=== PATIENT | male | born 1970 | race Caucasian/White ===

== ENCOUNTER 2018-07-13 20:16 | Emergency (ER) | payer MEDICAID ==
[~2018-07-13] VITALS: Ht 160 cm; Wt 95.3 kg
[2018-07-13 20:20] VITALS: BP_SYST 190
--- NOTE | 2018-07-13 20:30 | NUR ---
Placed in room 5 . Placed on personnel monitor, blood pressure machine and pulse oximeter. To gown for exam. Side rails up. Report given to SHAZIA MARCELO.
--- NOTE | 2018-07-13 20:45 | NUR ---
2044 - Assumed care of pt. Pt states that he was watching a movie at home, started laughing, then had a coughing fit, and had syncopal episode. pt states he has hx of HTN, but did not take medication today. Pt has hematoma and abrasion to left cheek, and abrasion and swelling to right lower lip. pt is A&OX4, no distress. resp even and unlabored. BP elevated at 189/106, denies cp, sob, lightheadedness, dizziness.
--- NOTE | 2018-07-13 20:55 | NUR ---
2054 - Ice pack given for left cheek
--- NOTE | 2018-07-13 21:01 | NUR ---
2101 - ER at bedside examining patient.
--- NOTE | 2018-07-13 21:11 | NUR ---
PT MOVED TO ER ROOM 8,REPORT GIVEN TO JACLYN MARCELO.
[2018-07-13] MEDS ORDERED: NACL 0.9% 1,000 ML IV ONE (21:15)
--- NOTE | 2018-07-13 21:22 | NUR ---
1L NS administered. Pt tolerated well. No adverse reactions noted.
--- NOTE | 2018-07-13 21:45 | NUR ---
Pt taken to radiology in stable condition
--- NOTE | 2018-07-13 22:09 | NUR ---
Lab at bedside for blood draw. Ice pack provided per pt request. BP 182/117, Pain 7/10 and requests pain medication. Dr[address] Roberts notified. Orders to be received.
[2018-07-13 22:28] LABS: HEMATOCRIT 40.6 % (36-54); HEMOGLOBIN 13.5 g/dL (14.0-18.0); MEAN CORPUSCULAR HEMOGLOBIN 28 pg (27-31); MEAN CORPUSCULAR HGB CONC 33 % (32-36); MEAN CORPUSCULAR VOLUME 84 fL (79.0-98.0); RED BLOOD CELL COUNT(AUTO) 4.84 MIL/uL (4.2-6.2); RED CELL DISTRIBUTION WIDTH 14.3 % (9.0-15.0); WHITE BLOOD COUNT (AUTO) 8.4 K/uL (4.8-10.8)
[2018-07-13 22:29] LABS: BASOPHILS # (AUTO) 0.1 K/uL (0.0-0.2); BASOPHILS % (AUTO) 0.6 % (0.0-2.0); EOSINOPHILS # (AUTO) 0.4 K/uL (0.0-0.4); EOSINOPHILS % (AUTO) 5.2 % (0.0-4.0); LYMPHOCYTES # (AUTO) 2.3 K/uL (1.0-5.5); LYMPHOCYTES % (AUTO) 27.8 % (20.5-51.5); MONOCYTES # (AUTO) 0.8 K/uL (0.0-1.0); MONOCYTES % (AUTO) 9.3 % (1.7-9.3); NEUTROPHILS # (AUTO) 4.8 K/uL (1.8-7.7); NEUTROPHILS % (AUTO) 57.1 % (40.0-70.0); PLATELET COUNT (AUTO) 234 K/uL (130-430)
[2018-07-13] MEDS ORDERED: hydrALAZINE HCL 20 MG/ML VIAL IVP ONE (22:30)
[2018-07-13] MEDS ORDERED: MORPHINE 4 MG/ML INJ. SYRINGE IVP ONE (22:30)
--- NOTE | 2018-07-13 22:30 | NUR ---
Pt refused morphine and requested non-narcotic pain medication. Dr. Roberts notified. Orders to be received.
[2018-07-13 22:31] LABS: CALCIUM 8.3 mg/dL (8.4-11.0); CREATININE 1.03 mg/dL (0.55-1.30); POTASSIUM 3.3 mmol/L (3.5-5.1)
[2018-07-13 22:34] LABS: PROTHROMBIN TIME 10.2 SECS (9.5-12.5)
[2018-07-13 22:36] LABS: TOTAL BILIRUBIN 0.3 mg/dL (0.0-1.0)
[2018-07-13] MEDS ORDERED: POTASSIUM CHLORIDE 20 MEQ TAB.PRT.SR PO ONE (22:45)
[2018-07-13] MEDS ORDERED: IBUPROFEN 800 MG TABLET PO ONE (22:45)
--- NOTE | 2018-07-13 22:49 | NUR ---
Ibuprofen 800mg PO administered. Pt tolerated well. No adverse reactions noted.
[2018-07-13 22:58] LABS: BILIRUBIN,URINE NEGATIVE (NEGATIVE); BLOOD, URINE NEGATIVE (NEGATIVE); CLARITY/URINE CLEAR (CLEAR); COLOR,URINE YELLOW (YELLOW); GLUCOSE,URINE NEGATIVE (NEGATIVE); KETONES,URINE NEGATIVE (NEGATIVE); LEUKOCYTE ESTERASE ,URINE NEGATIVE (NEGATIVE); NITRITE, URINE NEGATIVE (NEGATIVE); PROTEIN URINE NEGATIVE (NEGATIVE); UROBILINOGEN,URINE 0.2 (0.2-1.0)
[2018-07-13 23:09] LABS: BARBITURATE, URINE NEGATIVE (NEG <=200); BENZODIAZEPINE, URINE NEGATIVE (NEG <=150); CANNABINOID, URINE NEGATIVE (NEG <=50); COCAINE, URINE NEGATIVE (NEG <=150); METHAMPHETAMINES SCREEN,URINE NEGATIVE (NEG <=500); OPIATE, URINE NEGATIVE (NEG <=100); PHENCYCLIDINE SCREEN,URINE NEGATIVE (NEG <=25); UR TRICYCLIC ANTIDEPRESSANTS NEGATIVE (NEG <=300); URINE AMPHETAMINE NEGATIVE (NEG <=500); URINE METHADONE NEGATIVE (NEG <=200); URINE OXYCODONE SCREEN NEGATIVE (NEG <=100); URINE PROPOXYPHENE SCREEN NEGATIVE (NEG <=300)
--- NOTE | 2018-07-13 23:13 | NUR ---
Patient given written and verbal discharge instructions and verbalizes understanding. ER MD discussed with patient the results and treatment provided. Patient in stable condition. ID arm band removed. IV catheter removed intact and dressing applied, no active bleeding. Rx of Ibuprofen given. Patient educated on pain management and to follow up with PMD. Pain Scale 0/10. Opportunity for questions provided and answered. Medication side effect fact sheet provided.
[2018-07-13 23:18] VITALS: BP_SYST 144
== END 2018-07-13 23:18 | disposition home or self-care (01) ==
LOC: SED 20:16
DX: S01.511A Laceration without foreign body of lip, initial encounter (principal); R55 Syncope and collapse; E87.6 Hypokalemia; I10 Essential (primary) hypertension; W19.XXXA Unspecified fall, initial encounter; Y93.89 Activity, other specified; Y92.89 Other specified places as the place of occurrence of the external cause; Y99.8 Other external cause status
CPT/HCPCS: 36415; 70450; 70486; 71045; 80053; 80307; 81003; 84484; 85025; 85610; 85730; 93005; 96361; 96374; 99284; J0360; J2270; J7030

== ENCOUNTER 2022-10-22 17:50 | Emergency (ER) | payer MEDICAID ==
[~2022-10-22] VITALS: Ht 167.6 cm; Wt 81.6 kg
[~2022-10-22 17:50] MED LIST: LISI-209 PO; POTA-197 PO
[2022-10-22 18:07] VITALS: BP_SYST 164; PULSE 77; RESP 18; TEMP 98.3; O2SAT 94
[2022-10-22] MEDS ORDERED: KETOROLAC TROMETHAMINE 60 MG/2 ML VIAL IM ONE (18:15)
[2022-10-22] MEDS ORDERED: IBUP-1971 PO (20:21)
[2022-10-22] MEDS ORDERED: DICL20GE TP (20:21)
[2022-10-22 21:28] VITALS: BP_SYST 122; PULSE 76; RESP 18; TEMP 98.4; O2SAT 97
== END 2022-10-22 21:28 | disposition home or self-care (01) ==
LOC: SED 17:50
DX: S20.211A Contusion of right front wall of thorax, initial encounter (principal); S30.0XXA Contusion of lower back and pelvis, initial encounter; Z79.899 Other long term (current) drug therapy; V89.2XXA Person injured in unspecified motor-vehicle accident, traffic, initial encounter; Y93.89 Activity, other specified; Y92.89 Other specified places as the place of occurrence of the external cause; Y99.8 Other external cause status
CPT/HCPCS: 99285; 70450; 93005; 72100; 73564; 76376; 96372; J1885; J7030